=== PATIENT | male | born 1950 | race Caucasian/White ===

== ENCOUNTER 2017-02-03 18:02 | Emergency (ER) | payer SELFPAY ==
[~2017-02-03] VITALS: Ht 177.8 cm; Wt 76.0 kg
[2017-02-03] MEDS ORDERED: KETOROLAC 60MG/2ML VIAL IM ONE (21:30)
[2017-02-03 23:01] VITALS: BP 139/78
== END 2017-02-03 22:38 | disposition home or self-care (01) ==
LOC: ER 18:03
DX: M79.651 Pain in right thigh (principal); F03.90 Unspecified dementia, unspecified severity, without behavioral disturbance, psychotic disturbance, mood disturbance, and anxiety; I10 Essential (primary) hypertension
CPT/HCPCS: 73552; 73562; 96372; 99284; J1885; Z7610

== ENCOUNTER 2017-05-07 13:47 | Emergency (ER) | payer BC, MEDICARE ==
[~2017-05-07] VITALS: Ht 172.7 cm; Wt 82.0 kg
[2017-05-07 15:55] VITALS: BP 127/77
== END 2017-05-07 16:07 | disposition home or self-care (01) ==
LOC: ER 13:52
DX: F03.90 Unspecified dementia, unspecified severity, without behavioral disturbance, psychotic disturbance, mood disturbance, and anxiety (principal); I10 Essential (primary) hypertension
CPT/HCPCS: 70450; 99284